=== PATIENT | female | born 1995 | race Caucasian/White ===

== ENCOUNTER 2025-03-13 08:32 | Outpatient (CLI) | payer OTHER, SELFPAY ==
--- NOTE | 2025-03-13 08:45 | MR_ITS ---
[address] [address] Phone:?[phone] Fax:?[phone] Referring Physician Information: Jus Paredes M.D. [id number] [address] Phone:?[phone] Fax:?[phone] Patient:Lisa Dial D.O.B:?1995 Sex:?Female Phone:? [facility] MRN:?[id number] Exam Date:?03/13/2025 EXAM: MRI of the LEFT KNEE, without contrast CLINICAL INFORMATION: Female, 29 years old, with left knee pain. INDICATION: Evaluate for ACL tear. PRIOR SURGERY: None reported. PLAIN FILMS: Knee radiographs dated 03/06/2025. COMPARISONS: No prior MRIs available. TECHNICAL INFORMATION: Using a 1.5T MR scanner and a localizing surface coil: sagittals: PD, PDFS coronals: PD, STIR axials: PD, T2FS SEDATION: None CONTRAST: None FINDINGS: Knee joint: Effusion: Moderate-marked left knee effusion, with synovitis. Popliteal cyst: None. Loose bodies: None. Subcutaneous and extra-articular soft tissues: Unremarkable. Ligaments: ACL: Full-thickness disruption of the ACL (sagittal PDFS series 6 images 16-18). PCL: Intact PCL, without acute or chronic injury. MCL: Intact MCL superficial and deep layers, without injury. LCL: Intact LCL, without injury. Posterolateral corner: No posterolateral corner soft tissue injury. Popliteus, biceps femoris, iliotibial band, popliteofibular ligament and lateral gastrocnemius are intact. Posteromedial corner: No posteromedial corner soft tissue injury. Semimembranosus, pes anserine tendons and posterior oblique ligament are without injury, tendinopathy or bursitis. Extensor mechanism: Patellar tendon: Intact, without tendinopathy. Quadriceps tendon: Intact, without tendinopathy. Retinacula: Medial and lateral retinacula are intact. Fat pads: Unremarkable infrapatellar Hoffa's, quadriceps and prefemoral fat pads. Medial compartment: Medial meniscus: Bucket-handle tear of the medial meniscus with a medium-sized flap fragment displaced along the tibial eminence (sagittal PDFS series 6 images 9-15 and coronal STIR series 8 images 14-21). No meniscal extrusion parameniscal cyst. Medial femoral condyle: No chondromalacia or osteochondral abnormality. Medial tibial plateau: No chondromalacia or osteochondral abnormality. Lateral compartment: Lateral meniscus: Bucket-handle tear of the lateral meniscus with nearly the entire posterior horn and body segments flipped anteromedially, located along the anterior horn and tibial eminence (sagittal PDFS series 6 images 17-24). Superimposed vertical tearing is present throughout the bucket-handle fragment. Lateral femoral condyle: No chondromalacia or osteochondral abnormality. Lateral tibial plateau: No chondromalacia or osteochondral abnormality. Patellofemoral joint: Patella: No chondromalacia or osteochondral abnormality. Trochlea: No chondromalacia or osteochondral abnormality. Proximal tibiofibular joint: Unremarkable, without evidence of ligament sprain injury, joint effusion or adjacent marrow edema. Bones: No stress/occult fractures or other marrow edema/pathology. IMPRESSION: 1. Full-thickness disruption of the ACL. 2. Complex bucket-handle tear of the lateral meniscus with nearly the entire posterior horn and body segments flipped anteromedially with superimposed vertical tearing of the bucket-handle fragment. 3. Bucket-handle tear of the medial meniscus with a medium-sized flap fragment displaced along the tibial eminence. 4. Moderate-marked knee joint effusion, synovitis. No popliteal (Phelps's) cyst. 5. No PCL, MCL, or LCL sprain/tear. 6. No chondromalacia or osteochondral lesion/defect. BC Electronically signed on 03/13/2025 2:20:00 PM by Austen Matos M.D.
== END 2025-03-13 08:33 | disposition home or self-care (01) ==
PROVIDERS: Visit Provider Orthopaedic Surgery
DX: M25.562 Pain in left knee (principal); S83.272A Complex tear of lateral meniscus, current injury, left knee, initial encounter; S83.242A Other tear of medial meniscus, current injury, left knee, initial encounter; M25.462 Effusion, left knee
CPT/HCPCS: 73721